=== PATIENT | female | born 1940 | race Caucasian/White ===

== ENCOUNTER 2017-05-02 13:57 | Inpatient (IN) | payer MEDICARE, OTHER ==
[~2017-05-02] VITALS: Ht 170.2 cm; Wt 43.3 kg
[2017-05-02] MEDS ORDERED: MoRPHine SULFATE 4 MG/ML 1 ML CARP\\VIAL IV STA ×3 (14:09→19:59)
[2017-05-02] MEDS ORDERED: ONDANSETRON INJ 2 MG/ML 2 ML VIAL IV STA (14:09)
[2017-05-02] MEDS ORDERED: SODIUM CHLORIDE 0.9% 1000ML 1,000 ML IV STA (14:52)
[2017-05-02 14:59] LABS: BASO % 0.5 %; BASO ABS # 0.05 K/uL (0-0.2); COMPLETE YES; EOS % 0.7 %; HEMATOCRIT 42.8 % (37-47); IG% 0.3 %; LYMPH % 12.4 %; LYMPH ABS # 1.29 K/uL (1.2-3.4); MEAN CELL VOLUME 102.9 fL (80-100); MEAN CORPUSCULAR HEMOGLOBIN 34.6 pg (25-34); MEAN CORPUSCULAR HGB CONC 33.6 g/dl (32-36); MEAN PLATELET VOLUME 11.1 fL (7.4-10.4); MONO % 5.8 %; NEUT % 80.3 %; PLATELET COUNT 215 K/uL (130-400); RED BLOOD COUNT 4.16 M/uL (4.2-5.4); WHITE BLOOD COUNT 10.43 K/uL (4.8-10.8)
[2017-05-02 15:07] LABS: INR 0.9 (0.9-1.1); PARTIAL THROMBOPLASTIN RATIO 0.9
[2017-05-02 15:15] LABS: CREATININE 0.78 mg/dl (0.60-1.20); POTASSIUM 4.5 mmol/L (3.5-5.1)
[2017-05-02] MEDS ORDERED: NASONEX NAE (15:40)
[2017-05-02] MEDS ORDERED: ALLO300T2 PO (15:40)
[2017-05-02] MEDS ORDERED: TIMOLOL OPB (15:40)
[2017-05-02] MEDS ORDERED: TRAM-10 PO (15:40)
[2017-05-02] MEDS ORDERED: LATA0.5S OPB (15:40)
[2017-05-02] MEDS ORDERED: IMD/2 PO (15:40)
[2017-05-02 15:45] VITALS: O2SAT 93; Ht 170.2 cm; Wt 43.3 kg
--- NOTE | 2017-05-02 16:06 | DIAGNOSTIC IMAGING REPORT ---
CHEST 1 VW FRONT-NOT PORTABLE HISTORY: 76 years-old Female RT HIP FX status post right hip fracture COMPARISON: None available TECHNIQUE: AP view of the chest FINDINGS: Patient is slightly rotated to the right. Cardiac silhouette is upper limits of normal. There is tortuosity and atherosclerosis of the thoracic aorta. There is no pneumothorax, overt pulmonary edema or focal airspace consolidation. There is mild pulmonary vascular congestion. Mild blunting of left costophrenic angle is noted suggesting atelectasis or trace effusion. Mild interstitial coarsening is noted bilaterally. Lungs are mildly hyperinflated. Bones are grossly intact. Mild sigmoidal scoliosis of the spine. IMPRESSION: 1. Mild blunting of left costophrenic angle suggests atelectasis/scarring or trace effusion. 2. Interstitial opacities bilaterally suggests chronic changes without lobar airspace consolidation. The above report was generated using voice recognition software. It may contain grammatical, syntax or spelling errors. Electronically signed by: Sonny Sky M.D. 05/02/2017 4:05 PM Dictated Date/Time: 05/02/2017 4:02 PM
--- NOTE | 2017-05-02 16:09 | DIAGNOSTIC IMAGING REPORT ---
R PELVIS/UNILATERAL HIP 2-3VIEWS HISTORY: 76 years-old Female fall acute right hip pain status post fall COMPARISON: None available TECHNIQUE: 4 views of the pelvis and right hip. FINDINGS: Bones are moderately demineralized. 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 Degenerative changes are also seen within the SI joints and bilateral lumbar spine. There is an acute minimally comminuted intertrochanteric fracture of the right femur with apex lateral angulation of approximately 25 degrees. Fracture lines are seen extending inferior to the greater trochanter laterally. No significant displacement or foreshortening identified. Moderate associated soft tissue swelling. IMPRESSION: Acute minimally comminuted intertrochanteric fracture of the right femur with mild apex lateral angle angulation and associated soft tissue swelling. The above report was generated using voice recognition software. It may contain grammatical, syntax or spelling errors. Electronically signed by: Sonny Sky M.D. 05/02/2017 4:07 PM Dictated Date/Time: 05/02/2017 4:05 PM
[2017-05-02 16:12] LABS: URINE APPEARANCE CLOUDY (CLEAR); URINE BILIRUBIN NEG (NEG); URINE COLOR DK YELLOW; URINE EPITHELIAL CELL AUTO >30 /lpf (0-5); URINE NITRITE NEG (NEG); UROBILINOGEN NEG (NEG); ZZURINE CULT IF INDIC CATH NO
--- NOTE | 2017-05-02 16:22 | History and Physical ---
History & Physical Date & Time of Service: May 02, 2017 at 16:19 Chief Complaint: Fall/ Rt Hip Pain Primary Care Physician: No Doctor, Assigned History of Present Illness Source: patient, family Her was taking their dogs out from the trailer as they were here visiting for [employer] football game. One of the dogs ran loose and patient grabbed the leash. Her 96 lb dog got excited and jumped on her while she was standing pushing her backwards on hardwood floor in the trailer on the right side. Past Medical/Surgical History Medical Problems: (1) Shoulder dislocation Status: Chronic Family History No pertinent family history Non-contributory Social History From [place], [place] Goes to [facility] Retired from [employer] 2 packs per day on average since 1959 (114 pack year history) Smoking Status: Current Every Day Smoker Allergies Coded Allergies: No Known Allergies (Unverified , 05/02/17) Home Medications Scheduled Allopurinol (Zyloprim), 300 MG PO DAILY Latanoprost (Xalatan 0.005% Oph Esther), 1 DROPS OPB HS Loperamide Hcl (Imodium), 2 MG PO PRN [Timolol], 1 DROP OPB QAM Scheduled PRN Tramadol (Ultram), 50 MG PO Q4H PRN for Pain [Nasonex], 1 SPRAY WARD DAILY PRN for Nasal Congestion Physical Exam Vital Signs Date Time Temp Pulse Resp B/P (MAP) Pulse Ox O2 Delivery O2 Flow Rate FiO2 05/02/17 15:57 116 14 93 05/02/17 15:45 93 Room Air 05/02/17 15:27 111 18 93 05/02/17 14:28 106 05/02/17 14:27 95 25 96 05/02/17 14:05 154/79 05/02/17 13:57 36.7 84 18 154/79 97 Room Air Diagnostics Laboratory Results Results Past 24 Hours Test 05/02/17 14:30 05/02/17 15:55 Range/Units White Blood Count 10.43 4.8-10.8 K/uL Red Blood Count 4.16 4.2-5.4 M/uL Hemoglobin 14.4 12.0-16.0 g/dL Hematocrit 42.8 37-47 % Mean Corpuscular Volume 102.9 80-100 fL Mean Corpuscular Hemoglobin 34.6 25-34 pg Mean Corpuscular Hemoglobin Concent 33.6 32-36 g/dl Platelet Count 215 130-400 K/uL Mean Platelet Volume 11.1 7.4-10.4 fL Neutrophils (%) (Auto) 80.3 % Lymphocytes (%) (Auto) 12.4 % Monocytes (%) (Auto) 5.8 % Eosinophils (%) (Auto) 0.7 % Basophils (%) (Auto) 0.5 % Neutrophils # (Auto) 8.39 1.4-6.5 K/uL Lymphocytes # (Auto) 1.29 1.2-3.4 K/uL Monocytes # (Auto) 0.60 0.11-0.59 K/uL Eosinophils # (Auto) 0.07 0-0.5 K/uL Basophils # (Auto) 0.05 0-0.2 K/uL RDW Standard Deviation 54.3 36.4-46.3 fL RDW Coefficient of Variation 14.5 11.5-14.5 % Immature Granulocyte % (Auto) 0.3 % Immature Granulocyte # (Auto) 0.03 0.00-0.02 K/uL Prothrombin Time 10.0 9.0-12.0 SECONDS Prothromb Time International Ratio 0.9 0.9-1.1 Activated Partial Thromboplast Time 24.0 21.0-31.0 SECONDS Partial Thromboplastin Ratio 0.9 Sodium Level 140 136-145 mmol/L Potassium Level 4.5 3.5-5.1 mmol/L Chloride Level 102 98-107 mmol/L Carbon Dioxide Level 26 21-32 mmol/L Anion Gap 12.0 3-11 mmol/L Blood Urea Nitrogen 10 7-18 mg/dl Creatinine 0.78 0.60-1.20 mg/dl Est Creatinine Clear Calc Drug Dose 43.3 ml/min Estimated GFR () 86.8 Estimated GFR (Non- 74.9 BUN/Creatinine Ratio 13.0 10-20 Random Glucose 90 70-99 mg/dl Calcium Level 10.0 8.5-10.1 mg/dl Impression Assessment and Plan Right hip fracture in a 76 year old female with h/o emphysema and over 100 pack year of smoking Suprisingly patient has no history of CHF, MS, TIA, stroke, renal failure, diabetes Relative Cardiac Risk Index is 0. Patient is low risk for intermediate risk procedure. consulted ortho ordered pain control informed risk level to patient and she understood. will be NPO after midnight ASA Classification: ASA Class I Level of Care Med/Surg Advanced Directives Existing Living Will: No Existing Power of Candle Making Supervisor: No Resuscitation Status FULL RESUSCITATION VTE Prophylaxis VTE Risk Assessment Done? Y/N: Yes Risk Level: Moderate Given or contraindicated: T.E.D. Stockings, SCD's Social Service Consult Lives in Personal Care
[2017-05-02 16:33] LABS: MANUAL MICROSCOPIC REQUIRED? NO; REVIEW REQ? YES
[2017-05-02] MEDS ORDERED: PNEUMOCOCCAL ADMINISTRATION CHARGE ONE (16:45)
[2017-05-02] MEDS ORDERED: PNEUMOCOCCAL POLYSACCHARIDES 25 MCG/0.5 ML VIAL/SYR IM. ONE (16:45)
[2017-05-02] MEDS ORDERED: INFLUENZA VACCINE HIGH DOSE 65+ 0.5 ML SYR IM. ONE (16:45)
[2017-05-02] MEDS ORDERED: INFLUENZA ADMINISTRATION CHARGE ONE (16:45)
--- NOTE | 2017-05-02 17:24 | EMERGENCY ROOM VISIT NOTE ---
History Report prepared by Sharita: Franky Petty Under the Supervision of: Dr. Roge Marie D.O. First contact with patient: 13:58 Stated Complaint: FALL/ RT HIP PAIN History of Present Illness The patient is a 76 year old female who presents to the Emergency Room via EMS with complaints of a sudden mechanical fall that occurred prior to arrival this morning. She says that her retriever jumped onto her with the dog's paws on her chest, and the patient then proceeded to fall to the ground onto her right side. The patient states that she could not walk afterwards due to persistent right hip pain. She says that she did not hit her head on the fall. She notes that she is not on any blood thinners. The patient adds that she has no fracture history, but has had a dislocated shoulder previously. She says that she is not normally on oxygen. She denies any loss of consciousness, headaches, neck pain, chest pain, shortness of breath, or left lower extremity pain. She has a history of gout and is from the [facility]. Source of History: patient, EMS Onset: Prior to arrival this morning Position: other (global - fall) Quality: other (mechanical - after dog jumped on her) Timing: other (sudden) Associated Symptoms: No LOC, No headache, No neck pain, No chest pain, No SOB Note: Associated symptoms: Denies left lower extremity pain. Review of Systems See HPI for pertinent positives & negatives. A total of 10 systems reviewed and were otherwise negative. Past Medical & Surgical Medical Problems: (1) Shoulder dislocation Family History No pertinent family history Social History Drug Use: none Marital Status: Housing Status: lives with family Current/Historical Medications Scheduled Allopurinol (Zyloprim), 300 MG PO DAILY Latanoprost (Xalatan 0.005% Oph Esther), 1 DROPS OPB HS Loperamide Hcl (Imodium), 2 MG PO PRN [Timolol], 1 DROP OPB QAM Scheduled PRN Tramadol (Ultram), 50 MG PO Q4H PRN for Pain [Nasonex], 1 SPRAY WARD DAILY PRN for Nasal Congestion Allergies Coded Allergies: No Known Allergies (Unverified , 05/02/17) Physical Exam Vital Signs Date Time Temp Pulse Resp B/P (MAP) Pulse Ox O2 Delivery O2 Flow Rate FiO2 05/02/17 16:44 98 Nasal Cannula 2.0 05/02/17 16:43 87 Room Air 05/02/17 16:30 113 12 115/73 98 Nasal Cannula 2.0 05/02/17 15:57 116 14 93 05/02/17 15:45 93 Room Air 05/02/17 15:27 111 18 93 05/02/17 14:28 106 05/02/17 14:27 95 25 96 05/02/17 14:05 154/79 05/02/17 13:57 36.7 84 18 154/79 97 Room Air Physical Exam GENERAL: laying in bed, moderate distress, disheveled, chronically ill-appearing HEAD: normal cephalic, atraumatic EYE EXAM: normal conjunctiva OROPHARYNX: no exudate, no erythema, lips, buccal mucosa, and tongue normal and mucous membranes are moist NOSE: No septal hematoma. NECK: supple, no nuchal rigidity, no adenopathy, non-tender CHEST: stable to compression anteriorly and posteriorly LUNGS: clear to auscultation. Normal chest wall mechanics HEART: no murmurs, S1 normal and S2 normal, there is an audible click ABDOMEN: abdomen soft, non-tender, normo-active bowel sounds, no masses, no rebound or guarding. PELVIS: stable to compression anteriorly and posteriorly BACK: Back is symmetrical on inspection and there is no deformity, no midline tenderness, no CVA tenderness. UPPER EXTREMITIES: full active and passive range of motion of all joints without tenderness to palpation LOWER EXTREMITIES: Full active and passive range of motion of all joints without tenderness to palpation in the left lower extremity. In the right lower extremity, there is significant pain on palpation to the proximal hip, no pain in the distal femur, knee, or ankle. DP 2/4 on right NEURO EXAM: Normal sensorium, cranial nerves II-XII grossly intact, normal speech, no gross weakness of arms. GCS: 15. Medical Decision & Procedures ER Provider Diagnostic Interpretation: X-ray results as stated below per my review and the radiologist's interpretation : R PELVIS/UNILATERAL HIP 2-3VIEWS HISTORY: 76 years-old Female fall acute right hip pain status post fall COMPARISON: None available TECHNIQUE: 4 views of the pelvis and right hip. FINDINGS: Bones are moderately demineralized. 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 Degenerative changes are also seen within the SI joints and bilateral lumbar spine. There is an acute minimally comminuted intertrochanteric fracture of the right femur with apex lateral angulation of approximately 25 degrees. Fracture lines are seen extending inferior to the greater trochanter laterally. No significant displacement or foreshortening identified. Moderate associated soft tissue swelling. IMPRESSION: Acute minimally comminuted intertrochanteric fracture of the right femur with mild apex lateral angle angulation and associated soft tissue swelling. The above report was generated using voice recognition software. It may contain grammatical, syntax or spelling errors. Electronically signed by: Sonny Sky M.D. 05/02/2017 4:07 PM Dictated Date/Time: 05/02/2017 4:05 PM CHEST 1 VW FRONT-NOT PORTABLE HISTORY: 76 years-old Female RT HIP FX status post right hip fracture COMPARISON: None available TECHNIQUE: AP view of the chest FINDINGS: Patient is slightly rotated to the right. Cardiac silhouette is upper limits of normal. There is tortuosity and atherosclerosis of the thoracic aorta. There is no pneumothorax, overt pulmonary edema or focal airspace consolidation. There is mild pulmonary vascular congestion. Mild blunting of left costophrenic angle is noted suggesting atelectasis or trace effusion. Mild interstitial coarsening is noted bilaterally. Lungs are mildly hyperinflated. Bones are grossly intact. Mild sigmoidal scoliosis of the spine. IMPRESSION: 1. Mild blunting of left costophrenic angle suggests atelectasis/scarring or trace effusion. 2. Interstitial opacities bilaterally suggests chronic changes without lobar airspace consolidation. The above report was generated using voice recognition software. It may contain grammatical, syntax or spelling errors. Electronically signed by: Sonny Sky M.D. 05/02/2017 4:05 PM Dictated Date/Time: 05/02/2017 4:02 PM Laboratory Results 05/02/17 14:30 Red Blood Count 4.16, Mean Corpuscular Volume 102.9, Mean Corpuscular Hemoglobin 34.6, Mean Corpuscular Hemoglobin Concent 33.6, Mean Platelet Volume 11.1, Neutrophils (%) (Auto) 80.3, Lymphocytes (%) (Auto) 12.4, Monocytes (%) ( Auto) 5.8, Eosinophils (%) (Auto) 0.7, Basophils (%) (Auto) 0.5, Neutrophils # ( Auto) 8.39, Lymphocytes # (Auto) 1.29, Monocytes # (Auto) 0.60, Eosinophils # ( Auto) 0.07, Basophils # (Auto) 0.05 05/02/17 14:30 Test 05/02/17 14:30 05/02/17 15:55 White Blood Count 10.43 K/uL (4.8-10.8) Red Blood Count 4.16 M/uL (4.2-5.4) Hemoglobin 14.4 g/dL (12.0-16.0) Hematocrit 42.8 % (37-47) Mean Corpuscular Volume 102.9 fL (80-100) Mean Corpuscular Hemoglobin 34.6 pg (25-34) Mean Corpuscular Hemoglobin Concent 33.6 g/dl (32-36) Platelet Count 215 K/uL (130-400) Mean Platelet Volume 11.1 fL (7.4-10.4) Neutrophils (%) (Auto) 80.3 % Lymphocytes (%) (Auto) 12.4 % Monocytes (%) (Auto) 5.8 % Eosinophils (%) (Auto) 0.7 % Basophils (%) (Auto) 0.5 % Neutrophils # (Auto) 8.39 K/uL (1.4-6.5) Lymphocytes # (Auto) 1.29 K/uL (1.2-3.4) Monocytes # (Auto) 0.60 K/uL (0.11-0.59) Eosinophils # (Auto) 0.07 K/uL (0-0.5) Basophils # (Auto) 0.05 K/uL (0-0.2) RDW Standard Deviation 54.3 fL (36.4-46.3) RDW Coefficient of Variation 14.5 % (11.5-14.5) Immature Granulocyte % (Auto) 0.3 % Immature Granulocyte # (Auto) 0.03 K/uL (0.00-0.02) Prothrombin Time 10.0 SECONDS (9.0-12.0) Prothromb Time International Ratio 0.9 (0.9-1.1) Activated Partial Thromboplast Time 24.0 SECONDS (21.0-31.0) Partial Thromboplastin Ratio 0.9 Anion Gap 12.0 mmol/L (3-11) Est Creatinine Clear Calc Drug Dose 43.3 ml/min Estimated GFR () 86.8 Estimated GFR (Non- 74.9 BUN/Creatinine Ratio 13.0 (10-20) Calcium Level 10.0 mg/dl (8.5-10.1) Urine Color DK YELLOW Urine Appearance CLOUDY (CLEAR) Urine pH 5.0 (4.5-7.5) Urine Specific [place] 1.020 (1.000-1.030) Urine Protein NEG (NEG) Urine Glucose (UA) NEG (NEG) Urine Ketones 1+ (NEG) Urine Occult Blood NEG (NEG) Urine Nitrite NEG (NEG) Urine Bilirubin NEG (NEG) Urine Urobilinogen NEG (NEG) Urine Leukocyte Esterase SMALL (NEG) Urine WBC (Auto) 5-10 /hpf (0-5) Urine RBC (Auto) 0-4 /hpf (0-4) Urine Hyaline Casts (Auto) 10-30 /lpf (0-5) Urine Epithelial Cells (Auto) >30 /lpf (0-5) Urine Bacteria (Auto) NEG (NEG) Urine Renal Epithelial Cells /lpf (0-5) Laboratory results per my review. Medications Administered Medications (Trade) Dose Ordered Sig/Miah Route Start Time Stop Time Status Last Admin Dose Admin Morphine Sulfate (MoRPHine SULFATE INJ) 4 mg NOW STAT IV 05/02/17 14:09 05/02/17 14:10 DC 05/02/17 14:48 4 MG Ondansetron HCl (Zofran Inj) 4 mg NOW STAT IV 05/02/17 14:09 05/02/17 14:10 DC 05/02/17 14:48 4 MG Sodium Chloride 1,000 ml @ 999 mls/hr Q1H1M STAT IV 05/02/17 14:52 05/02/17 15:52 DC 05/02/17 14:58 999 MLS/HR Morphine Sulfate (MoRPHine SULFATE INJ) 4 mg NOW STAT IV 05/02/17 15:35 05/02/17 15:36 DC 05/02/17 15:54 4 MG ECG Indication: other (trauma) Rate (beats per minute): 104 Rhythm: sinus tachycardia Findings: Q waves (Septal), left axis deviation, other (T-wave flattening in inferior) ED Course ED COURSE: Vital signs were reviewed and showed tachycardic vitals. The patients medical record was reviewed The above diagnostic studies were performed and reviewed. ED treatments and interventions as stated above. 1358: The patient was evaluated in room C4. A complete history and physical examination was performed. 1409: Ordered Zofran Inj 4 mg IV, Morphine Sulfate Inj 4 mg IV. 1452: Ordered NSS 1000 ml @ 999 mls/hr IV. 1525: Upon reevaluation, the patient still has a bit of pain. I discussed my findings with the patient and she understands and agrees with the treatment plan. Based on the patients age, coexisting illnesses, exam and lab findings the decision to treat as an inpatient was made. The patient remained stable while under my care. The patient will be evaluated for further management. 1536: I reviewed the patient's case with Dr. Millicent PETTIT service parts driver. He will evaluate the patient for further management. 1600: I reevaluated the patient and she is agreeable with staying here. 1614: I discussed the patient with Dr. Heath PAK. Medical Decision Differential diagnoses include major intracranial, cervical, spinal, thoracic, abdominal, pelvic and neurologic injury. Fracture, contusion, sprain, strain, laceration, abrasions included as well. Patient is a 76-year-old female who presents to ER following a mechanical fall. She is complaining of right hip pain. She is from [facility]. No other complaints. Did not hit her head. No blood thinners. X-rays show a right inotrope fracture. Discussed with orthopedics. Admitted patient to internal medicine. CBC all BMP was unremarkable. UA was contaminated with multiple epithelial cells. Chest x-ray shows no acute pathology. Patient was updated bedside. She is given 2 doses of IV morphine. She was resting comfortably and admitted to internal medicine for her right hip fracture. Medication Reconcilliation Current Medication List: was personally reviewed by me Blood Pressure Screening Patient's blood pressure: Normal blood pressure Consults Time Called: 1530 Consulting Physician: Dr. Millicent PETTIT service parts driver Returned Call: 1536 I reviewed the patient's case with Dr. Millicent PETTIT service parts driver. He will evaluate the patient for further management. Additional Consults: Time Called: 1600 Consulted Physician: Dr. Heath PAK Returned Call: 1614 Additional Comments: I discussed the patient with Dr. Heath PAK. Impression Primary Impression: Fracture of right hip Scribe Attestation The scribe's documentation has been prepared under my direction and personally reviewed by me in its entirety. I confirm that the note above accurately reflects all work, treatment, procedures, and medical decision making performed by me. Departure Information Dispostion Being Evaluated By Hospitalist Problem Qualifiers Primary Impression: Fracture of right hip Encounter type: initial encounter Fracture type: closed Qualified Codes: S72.001A - Fracture of unspecified part of neck of right femur, initial encounter for closed fracture
[2017-05-02 18:40] VITALS: BP 165/81; PULSE 71; TEMP 36.7; O2SAT 99
[2017-05-02] MEDS ORDERED: HydrALAZINE HCL 20 MG/ML VIAL IV. PRN (20:00)
[2017-05-02] MEDS ORDERED: HYDROmorphone INJ 1 MG/ML SYR IV PRN (20:00)
[2017-05-02 23:10] VITALS: BP 132/77; PULSE 90; TEMP 36.7; O2SAT 97
[2017-05-02] MEDS ORDERED: LATANOPROST 0.005% OP SOLN 2.5 ML BTL OPB ONE (23:24)
[2017-05-02 23:40] VITALS: O2SAT 97
[2017-05-03] VITALS (8 sets, daily range): BP systolic 124–171; BP diastolic 69–94; PULSE 68–117; TEMP 36.3–36.9; O2SAT 96–99
[2017-05-03] MEDS: MoRPHine SULFATE 4 MG/ML 1 ML CARP\\VIAL IV PRN ×2 (00:49→07:52)
[2017-05-03] MEDS: LACTATED RINGER'S 1000ML 1,000 ML IV SCH ×3 (02:24→23:26)
[2017-05-03] MEDS: ALLOPURINOL 300 MG TAB PO SCH (09:00)
[2017-05-03] MEDS: NICOTINE 21 MG/24 HR TDSY TD SCH (09:32)
[2017-05-03] MEDS ORDERED: BUPIVACAINE 0.5 % 5 MG/1 ML PF 10ML VIAL ONE (10:09)
--- NOTE | 2017-05-03 10:38 | CONSULTATION REPORT ---
DATE OF CONSULTATION: 05/03/2017 REASON FOR CONSULT: Right hip fracture. HISTORY OF PRESENT ILLNESS: The patient is a 76-year-old white female who is accompanied by her . The patient and her state that they were staying at a campground nearby [place]. The was letting the dogs out of the camper, taking one of dogs for a walk and bring him back. This dog went into the camper and then as they were trying to get one of the other dogs out of the camper, this dog ended up pulling on the leash that the patient was holding on causing her to lose her balance and fall. She had immediate pain in the right hip and groin and was unable to walk. She was brought to [facility] where she was seen by the staff. X-rays were taken and it was found that she had an intertrochanteric fracture of the right hip. She was admitted under medicine service and we have been asked to take care of her for her hip fracture. PAST MEDICAL HISTORY: Essentially benign. No history of hypertension, diabetes mellitus, tuberculosis, hepatitis, COPD. She does have a history of glaucoma and gout. PAST SURGICAL HISTORY: She had a reduction of the shoulder dislocation in the past. FAMILY HISTORY: Noncontributory. SOCIAL HISTORY: The patient is from the [facility] [place]. She is a smoker and smokes 2 packs per day. MEDICATIONS: Allopurinol 300 mg p.o. daily, Xalatan 0.005% ophthalmic solution 1 drop OPB at bedtime, timolol drops 1 drop OPB q.a.m., Imodium 2 mg p.o. p.r.n., tramadol 50 mg p.o. q. 4 hours p.r.n. pain, Nasonex spray 1 spray daily p.r.n. for congestion. ALLERGIES: NKDA. REVIEW OF SYSTEMS: As per admitting history and physical. PHYSICAL EXAMINATION: GENERAL: The patient is a 76-year-old old white female who appears her stated age. She is thin currently and having some mild to moderate pain in her right hip and groin due to her fracture. EXTREMITIES: Examination of the right lower extremity, it is shortened and externally rotated compared to the left. No attempts were made to move the right hip due to fracture and range of motion of her knee at this time is limited due to causing her right hip discomfort. She is nontender on palpation of the knee and is able to flex it mildly and extend at this time but causing her some discomfort in the hip as noted above. Right ankle and toes moved quite well and are nontender. Left lower extremity essentially within normal limits and has good range of motion at the hip, knee and ankle. Upper extremities are benign and have good range of motion at the elbows, shoulders and wrists. She is nontender throughout exam except up at the right lateral aspect of the hip which she has noted swelling from fracture. She denies neck pain on palpation and has good range of motion of her neck at this time and denies thoracic or low back pain. Other than being immobile from her right hip fractures, there is no gross motor or sensory losses at this time. ASSESSMENT: Right intertrochanteric hip fracture. PLAN: The patient will be required a trochanteric femoral nailing. This was previously discussed with the patient and her . Dr. Baez will see the patient later today and discussed risks, benefits and get consent for surgery.
--- NOTE | 2017-05-03 11:56 | History & Physical Bridge Note ---
H&P Re-Evaluation Bridge Note: I have examined the patient, reviewed the History & Physical and in the interval since the performance of the History & Physical I have noted the following changes of clinical significance: No changes noted
[2017-05-03] MEDS ORDERED: NURSING VERBAL MED ORDER STA (12:10)
[2017-05-03] MEDS ORDERED: CEFAZOLIN IV 1,000 MG in SYRINGE 0 ML IV STA (12:15)
[2017-05-03] MEDS ORDERED: CEFAZOLIN SOD 1000MG/5 ML IV PUSH IV ONE (12:16)
[2017-05-03] MEDS ORDERED: PROPOFOL IV EMULSION 10 MG/ML 20 ML VIAL IV ONE (12:59)
[2017-05-03] MEDS ORDERED: LIDOCAINE HCL 2% 2 ML VIAL (20MG/ML) ONE (12:59)
[2017-05-03] MEDS ORDERED: MIDAZOLAM HCL 1 MG/ML 2ML VIAL ONE (13:00)
[2017-05-03] MEDS ORDERED: FENTANYL CITRATE INJ 50 MCG/1 ML 2 ML VIAL ONE (13:48)
[2017-05-03] MEDS ORDERED: ONDANSETRON INJ 2 MG/ML 2 ML VIAL IV PRN ×2 (14:00→15:15)
[2017-05-03] MEDS ORDERED: PROMETHAZINE HCL INJ 6.25 MG in SODIUM CHLORIDE 0.9% 50ML 50 ML IV PRN (14:00)
[2017-05-03] MEDS ORDERED: EpHEDrine SULFATE INJ 50 MG/ML AMP IV PRN (14:00)
[2017-05-03] MEDS ORDERED: FENTANYL CITRATE INJ 50 MCG/1 ML 2 ML VIAL IV PRN (14:00)
[2017-05-03] MEDS ORDERED: ATROPINE SULFATE 0.1 MG/ML 5ML SYR IV PRN (14:00)
[2017-05-03] MEDS ORDERED: SODIUM CHLORIDE 0.9% INJ 10 ML VIAL ONE (14:32)
[2017-05-03] MEDS ORDERED: KETAMINE HCL INJ 50 MG/ML 10 ML VIAL ONE (14:33)
[2017-05-03] MEDS ORDERED: NALOXONE HCL 0.4 MG/1 ML VIAL/CARP IV PRN (15:15)
[2017-05-03] MEDS ORDERED: MAGNESIUM HYDROXIDE SUSP 30 ML UDC PO PRN (15:15)
[2017-05-03] MEDS ORDERED: BISACODYL 10 MG SUPP PR PRN (15:15)
[2017-05-03] MEDS ORDERED: PHENYLEPHRINE 100MCG/ML 5ML SYR ONE (15:17)
--- NOTE | 2017-05-03 15:42 | Hospitalist Progress Note ---
Hospitalist Progress Note Date of Service May 03, 2017. (Kathleen Garcia PA-C) Subjective Pt evaluation today including: conversation w/ patient, conversation w/ family , physical exam, chart review, lab review, review of studies, review of inpatient medication list Patient seen and evaluated. No acute events overnight. Reporting pain in the R hip that is controlled with IV medications but not sustaining. Patient is due for OR today for repair. Reporting her dentist mentioned poor mineralization as she has been consistently losing teeth. Constitutional: No fever, No chills Respiratory: No cough, No shortness of breath Cardiovascular: No chest pain, No palpitations Abdomen: No pain, No nausea, No vomiting, No diarrhea, No constipation Musculoskeletal: + joint pain (R Hip), No calf pain Female : No dysuria Neurologic: No numbness/tingling Heme: No abnormal bleeding/bruising Skin: No rash (Kathleen Garcia PA-C) Medications Current Inpatient Medications Medications (Trade) Dose Ordered Sig/Miah Route Start Time Stop Time Status Last Admin Dose Admin Morphine Sulfate (MoRPHine SULFATE INJ) 4 mg Q4H PRN IV 05/02/17 20:00 05/16/17 19:59 05/03/17 07:52 4 MG Hydromorphone HCl (Dilaudid Inj) 1 mg Q4H PRN IV 05/02/17 20:00 05/16/17 19:59 05/02/17 22:50 1 MG Hydralazine HCl (HydrALAZINE INJ) 10 mg Q4H PRN IV. 05/02/17 20:00 06/01/17 19:59 Allopurinol (Zyloprim Tab) 300 mg DAILY PO 05/03/17 09:00 06/02/17 08:59 Latanoprost (Xalatan Oph Soln) 1 drops HS OPB 05/03/17 21:00 06/02/17 20:59 Lactated Ringer's 1,000 ml @ 80 mls/hr [id number] IV 05/03/17 01:45 06/02/17 01:44 05/03/17 02:24 80 MLS/HR Nicotine (Nicoderm Cq 21MG Patch) 1 patch QAM TD 05/03/17 09:00 06/02/17 08:59 05/03/17 09:32 1 PATCH Miscellaneous (Remove Nicoderm Patch) 1 ea HS N/A 05/03/17 21:00 06/02/17 20:59 Fentanyl Citrate (Fentanyl Inj) 50 mcg Q5M PRN IV 05/03/17 14:00 05/03/17 19:00 Ondansetron HCl (Zofran Inj) 4 mg ONE PRN IV 05/03/17 14:00 05/03/17 19:00 Promethazine HCl 6.25 mg/Sodium Chloride 50.25 ml @ 202 mls/hr ONE PRN IV 05/03/17 14:00 05/03/17 19:00 Ephedrine Sulfate (EpHEDrine SULFATE INJ) 5 mg Q5M PRN IV 05/03/17 14:00 05/03/17 19:00 Atropine Sulfate (Atropine Sulfate 0.1MG/Ml Inj) 0.5 mg Q1M PRN IV 05/03/17 14:00 05/03/17 19:00 Cefazolin Sodium 1000 mg/Dextrose 55 ml @ 100 mls/hr Q8H IV 05/03/17 15:15 05/03/17 23:47 UNV Ondansetron HCl (Zofran Inj) 4 mg Q6H PRN IV 05/03/17 15:15 06/02/17 15:14 UNV Oxycodone HCl (Roxicodone Immediate Rel Tab) 5 mg Q4H PRN PO 05/03/17 15:15 05/17/17 15:14 UNV Oxycodone HCl (Roxicodone Immediate Rel Tab) 10 mg Q4H PRN PO 05/03/17 15:15 05/17/17 15:14 UNV Aspirin/Aluminum/ Magnesium/Ca Carb (Ascriptin Tab) 325 mg BID PO 05/03/17 21:00 06/02/17 20:59 UNV Naloxone HCl (Narcan Inj) 0.4 mg Q1M PRN IV 05/03/17 15:15 06/02/17 15:14 UNV Senna/Docusate Sodium (Senokot S Tab) 2 tab HS PO 05/03/17 21:00 06/02/17 20:59 UNV Magnesium Hydroxide (Milk Of Magnesia Susp) 30 ml DAILY PRN PO 05/03/17 15:15 06/02/17 15:14 UNV Bisacodyl (Dulcolax Supp) 10 mg DAILY PRN [place] 05/03/17 15:15 06/02/17 15:14 UNV (Kathleen Garcia PA-C) Objective Vital Signs Date Time Temp Pulse Resp B/P (MAP) Pulse Ox O2 Delivery O2 Flow Rate FiO2 05/03/17 08:16 Nasal Cannula 1.5 05/03/17 08:11 36.7 68 16 124/78 (93) 98 Nasal Cannula 1.5 05/03/17 07:40 97 Nasal Cannula 2.0 05/02/17 23:40 97 Nasal Cannula 2.0 05/02/17 23:10 36.7 90 17 132/77 (95) 97 Room Air 05/02/17 18:40 99 Nasal Cannula 2.0 05/02/17 18:40 36.7 71 18 165/81 (109) 99 Nasal Cannula 2.0 05/02/17 18:26 116 12 131/76 96 05/02/17 18:25 116 131/76 96 Room Air 05/02/17 16:44 98 Nasal Cannula 2.0 05/02/17 16:43 87 Room Air 05/02/17 16:30 113 12 115/73 98 Nasal Cannula 2.0 05/02/17 15:57 116 14 93 05/02/17 15:45 93 Room Air (Kathleen Garcia PA-C) Physical Exam General Appearance: no apparent distress, + thin Neck: supple, no JVD, trachea midline Respiratory/Chest: lungs clear, normal breath sounds, no respiratory distress, no accessory muscle use Cardiovascular: regular rate, rhythm, no gallop, no murmur Abdomen: normal bowel sounds, non tender, soft Extremities: + pertinent finding (RLE externally rotated and slightly shortened ; good perfusion and temperature equal in legs b/l) Neurologic/Psychiatric: alert Skin: normal color, warm/dry (Kathleen Garcia PA-C) Laboratory Results Last 24 Hours Test 05/02/17 15:55 05/03/17 09:20 Urine Color DK YELLOW Urine Appearance CLOUDY Urine pH 5.0 Urine Specific [place] 1.020 Urine Protein NEG Urine Glucose (UA) NEG Urine Ketones 1+ Urine Occult Blood NEG Urine Nitrite NEG Urine Bilirubin NEG Urine Urobilinogen NEG Urine Leukocyte Esterase SMALL Urine WBC (Auto) 5-10 /hpf Urine RBC (Auto) 0-4 /hpf Urine Hyaline Casts (Auto) 10-30 /lpf Urine Epithelial Cells (Auto) >30 /lpf Urine Bacteria (Auto) NEG Urine Renal Epithelial Cells /lpf 25-Hydroxy Vitamin D Total 4.6 ng/ml (Kathleen Garcia, PA-C) Assessment and Plan Right hip fracture in a 76 year old female with h/o emphysema and over 100 pack year of smoking R Hip Fracture: - Patient sustained a fall from a 90+ dog jumped up on her and fell backwards - Pain medication PRN - PT/OT services - Orthopedics following - scheduled for OR today Suspect Osteopenia/Osteoporosis: - Obtain Vit D level and recommend outpatient DEXA scan Tobacco Use: - Discussed with patient and about emphysema and need to stop smoking - 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 DVT Prophylaxis: SCDs Code Status: FULL RESUSCITATION Disposition: - [place] and recommending services near home - Recommending to follow with orthopedic back home if possible Continued [facility] stay due to: ambulation difficulties Discharge planning: uncertain (PT services vs SNF/Rehab back home) (Kathleen Garcia, PA-C) i personally examined pt and verified all arizmendi points w Dayanara Garcia PAC uncomfortable but pain meds help never had DEXA smokes heavily vitals noted nad thin and frail breathing unlabored hip fx - medically acceptable for OR, benefits far outweigh operative risks presumed osteoporosis - check D level, outpt start bisphosphonate ~1 month from now, DEXA as outpt as well underweight, smoking - contribute to osteoporosis risks macrocytosis - as a late addition after seeing D level so profoundly low - will check B12, folic acid DVT proph - SCD, start pharmacologic once OK w ortho (Roge Roche, D.O.)
--- NOTE | 2017-05-03 15:46 | OPERATIVE REPORT ---
DATE OF OPERATION: 05/03/2017 POSTOPERATIVE DIAGNOSIS: Intertrochanteric hip fracture, right. PROCEDURE: Closed locked trochanteric nailing, right hip. SURGEON: Dr. Baez. ANESTHESIA: Spinal. COMPLICATIONS: None. DESCRIPTION OF PROCEDURE: Following induction of adequate anesthesia, the patient's right leg was placed on the fracture table and closed reduction was carried out using a longitudinal traction. Nearly, anatomic reduction was obtained. The right hip was prepped and draped in usual sterile manner. Fluoroscopic guidance was used to locate the proximal incision which was made at the tip of the greater trochanter. Sharp dissection was taken down to fascia and digital palpation felt the tip of the greater trochanter. A drill tipped guidewire was placed in the center portion of the tip of the greater trochanter and this was drilled and the canal was entered. With no power, the drill tipped wire was guided down the canal of the femur, ensuring adequate placement in AP and lateral planes. The femoral canal was opened using the trochanteric drill and a beaded tipped guidewire was placed intramedullary. The intermediate 11 mm trochanteric nail was passed and held at the appropriate level and the 90 mm helical blade was utilized to fix the fracture proximally. The locking screw was driven home and the guidewire was removed. Following this, the distal interlocking was carried out using the appropriate guide and drill and a single 36 mm screw was used to fix the fracture distally. This produced an anatomic and stable fixation construct. The insertion tool was removed. The wounds were thoroughly irrigated. Fascia was closed proximally using #1 Vicryl, subcutaneous tissue was closed using 2-0 Dexon, and skin was closed with rain. Sterile dressing of Adaptic, 4 x 4s, ABDs and foam tape was applied. The patient tolerated the procedure well. I attest to the content of the Intraoperative Record and any orders documented therein. Any exception s are noted below.
--- NOTE | 2017-05-03 15:49 | DIAGNOSTIC IMAGING REPORT ---
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 Intratrochanteric fracture of the right femur COMPARISON: Pelvis and right hip radiographs 05/02/2017 TECHNIQUE: 3 spot fluoroscopic images of the right hip were obtained utilizing 41.9 seconds fluoroscopy time FINDINGS: Images demonstrate placement of an intramedullary horacio with intertrochanteric nail. Single fixation screw is noted within the proximal femoral shaft. There is fixation with near-anatomic alignment of the previously described acute intertrochanteric fracture. Moderate degenerative changes of the right femoral acetabular joint. IMPRESSION: Status post placement of an intramedullary horacio with intertrochanteric nail demonstrating satisfactory alignment. The above report was generated using voice recognition software. It may contain grammatical, syntax or spelling errors. Electronically signed by: Sonny Sky M.D. 05/03/2017 3:47 PM Dictated Date/Time: 05/03/2017 3:46 PM
--- NOTE | 2017-05-03 16:09 | Anesthesiology Progress Note ---
Anesthesia Post Op Note Date & Time May 03, 2017 at 16:09 Vital Signs Pain Intensity: 0 Vital Signs Past 12 Hours Date Time Temp Pulse Resp B/P (MAP) Pulse Ox O2 Delivery O2 Flow Rate FiO2 05/03/17 16:00 92 15 117/65 100 Nasal Cannula 2 05/03/17 15:50 86 18 114/63 100 Nasal Cannula 2 05/03/17 15:41 36.5 100 18 113/69 100 Nasal Cannula 2 05/03/17 08:16 Nasal Cannula 1.5 05/03/17 08:11 36.7 68 16 124/78 (93) 98 Nasal Cannula 1.5 05/03/17 07:40 97 Nasal Cannula 2.0 Notes Mental Status: alert / awake / arousable, participated in evaluation Pt Amnestic to Procedure: Yes Nausea / Vomiting: adequately controlled Pain: adequately controlled Airway Patency, RR, SpO2: stable & adequate BP & HR: stable & adequate Hydration State: stable & adequate Neuraxial Anesthesia: was administered, sensory block is resolving Anesthetic Complications: no major complications apparent
[2017-05-03] MEDS ORDERED: ERGOCALCIFEROL 50,000 INTER.UNIT CAP PO ONE (18:00)
[2017-05-03] MEDS: OXYCODONE HCL IR 5 MG TAB (IMMEDIATE RELEASE) PO PRN (19:15)
[2017-05-03] MEDS: CEFAZOLIN IV 1,000 MG in SYRINGE 0 ML IV SCH (20:06)
[2017-05-03] MEDS: ASPIRIN/ALUM/MAGNES/CAL CARB 325 MG TAB PO SCH (20:57)
[2017-05-03] MEDS: DOCUSATE SODIUM/SENNA 50/8.6MG TAB PO SCH (20:58)
[2017-05-03] MEDS: LATANOPROST 0.005% OP SOLN 2.5 ML BTL OPB SCH (20:59)
[2017-05-04] VITALS (7 sets, daily range): BP systolic 115–136; BP diastolic 71–83; PULSE 91–115; TEMP 36.7–37.9; O2SAT 91–99
[2017-05-04] MEDS: CEFAZOLIN IV 1,000 MG in SYRINGE 0 ML IV SCH (03:35)
[2017-05-04] MEDS: OXYCODONE HCL IR 5 MG TAB (IMMEDIATE RELEASE) PO PRN ×2 (03:40→10:50)
[2017-05-04 05:54] LABS: HEMATOCRIT 31.2 % (37-47); MEAN CELL VOLUME 103.3 fL (80-100); MEAN CORPUSCULAR HEMOGLOBIN 33.8 pg (25-34); MEAN CORPUSCULAR HGB CONC 32.7 g/dl (32-36); MEAN PLATELET VOLUME 10.3 fL (7.4-10.4); PLATELET COUNT 130 K/uL (130-400); RED BLOOD COUNT 3.02 M/uL (4.2-5.4); WHITE BLOOD COUNT 6.85 K/uL (4.8-10.8)
[2017-05-04 06:35] LABS: BUN/CREATININE RATIO 7.1 (10-20); CALCIUM 8.8 mg/dl (8.5-10.1); CREATININE 0.54 mg/dl (0.60-1.20); POTASSIUM 3.7 mmol/L (3.5-5.1)
[2017-05-04] MEDS: ASPIRIN/ALUM/MAGNES/CAL CARB 325 MG TAB PO SCH ×2 (07:54→22:23)
[2017-05-04] MEDS: NICOTINE 21 MG/24 HR TDSY TD SCH (07:54)
[2017-05-04] MEDS: ALLOPURINOL 300 MG TAB PO SCH (07:54)
--- NOTE | 2017-05-04 08:08 | Anesthesiology Progress Note ---
Anesthesia Post Op Note Date & Time May 04, 2017 at 08:08 Vital Signs Pain Intensity: 8.0 Vital Signs Past 12 Hours Date Time Temp Pulse Resp B/P (MAP) Pulse Ox O2 Delivery O2 Flow Rate FiO2 05/04/17 07:57 37.0 113 18 131/80 (97) 91 Nasal Cannula 2.0 05/04/17 03:35 36.7 91 16 136/76 (96) 99 Nasal Cannula 1.0 05/03/17 23:45 Nasal Cannula 05/03/17 23:03 36.9 101 17 139/69 (92) 98 Nasal Cannula 1.0 05/03/17 20:15 36.8 117 16 145/69 (94) 96 Nasal Cannula 2.0 Notes Mental Status: alert / awake / arousable, participated in evaluation Pt Amnestic to Procedure: Yes Nausea / Vomiting: adequately controlled Pain: adequately controlled Airway Patency, RR, SpO2: stable & adequate BP & HR: stable & adequate Hydration State: stable & adequate Neuraxial Anesthesia: sensory block resolved Anesthetic Complications: no major complications apparent
[2017-05-04] MEDS ORDERED: ERGOCALCIFEROL 50,000 INTER.UNIT CAP PO SCH (09:00)
[2017-05-04] MEDS: CHOLECALCIFEROL 1000 INTER.UNIT TAB PO SCH (09:11)
--- NOTE | 2017-05-04 09:21 | Orthopedic Progress Note ---
Orthopedic Progress Note Date of Service May 04, 2017. Subjective Post OP Day: 1 Reports: feeling well, Denies: chest pain, SOB, nausea / vomiting, light headedness, calf pain Additional Notes: Some pain off and on this AM but tolerating well. Feeling better than she was yesterday. Eating breakfast currently. present and discussing possible dc plans. Objective calves soft nontender, N/V intact, dressing C/D/I, A&O x3, toes mobile Date Time Temp Pulse Resp B/P (MAP) Pulse Ox O2 Delivery O2 Flow Rate FiO2 05/04/17 09:02 Nasal Cannula 2.0 94 05/04/17 07:57 37.0 113 18 131/80 (97) 91 Nasal Cannula 2.0 05/04/17 03:35 36.7 91 16 136/76 (96) 99 Nasal Cannula 1.0 05/03/17 23:45 Nasal Cannula 05/03/17 23:03 36.9 101 17 139/69 (92) 98 Nasal Cannula 1.0 05/03/17 20:15 36.8 117 16 145/69 (94) 96 Nasal Cannula 2.0 05/03/17 18:30 36.5 108 16 160/80 (106) 99 Nasal Cannula 2.0 05/03/17 17:32 36.5 98 18 171/94 (119) 99 Nasal Cannula 2.0 05/03/17 17:00 36.6 99 16 129/73 (91) 99 Nasal Cannula 2.0 05/03/17 16:30 Nasal Cannula 2.0 05/03/17 16:30 36.3 101 16 134/78 (96) 99 Nasal Cannula 2.0 05/03/17 16:30 Nasal Cannula 2.0 05/03/17 16:15 82 14 114/70 100 Nasal Cannula 2 05/03/17 16:10 37.1 83 10 113/72 100 Nasal Cannula 2 05/03/17 16:00 92 15 117/65 100 Nasal Cannula 2 05/03/17 15:50 86 18 114/63 100 Nasal Cannula 2 05/03/17 15:41 36.5 100 18 113/69 100 Nasal Cannula 2 Laboratory Results 24 Hours: Test 05/04/17 05:39 Hematocrit 31.2 % Hemoglobin 10.2 g/dL Assessment & Plan Assessment: POD 1 s/p Right TFN Plan: PT/OT - TTWB Trying to decide between need for Rehab vs home. Will need to she how she does in PT Inhouse Planning Pain Management: Morphine, Oxy IR DVT Prophylaxis: TEDs, SCDs, ASA Discharge Planning Discharge Planning: uncertain
--- NOTE | 2017-05-04 12:24 | Clinical Documentation Query ---
CLINICAL DOCUMENTATION QUERY A 76 year old female who presents to the Emergency Room via EMS with complaints of a sudden mechanical fall from a standing position. In your clinical opinion is this patient being managed for: ( ) Osteoporotic right hip fracture in the setting of osteoporosis/osteopenia requiring partial hip replacement ( x ) Not Agree --- osteoporotic hip fracture but was intertrochanteric nailing not partial replacement ( ) Other explanation of clinical findings (Please Explain) ( ) Unable to determine (Please Define) ( ) Need to Discuss The medical record reflects the following clinical findings, treatment, and risk factors. Clinical Indicators: Hip fracture from a standing position Treatment: Partial hip replacement Risk Factors: Age, osteoporosis, smoker, BMI 15 Please clarify and document your clinical opinion in the progress notes and discharge summary. Terms such as "probable", "suspected", "likely", "questionable", "possible", or "still to be ruled out" are acceptable. IF IN AGREEMENT, YOU MUST DOCUMENT ABOVE DIAGNOSTIC STATEMENT IN DAILY PROGRESS NOTES AND DISCHARGE SUMMARY. This document is not part of the patient's record. Thank You, Sofi Kim RN [phone]
[2017-05-04] MEDS: LACTATED RINGER'S 1000ML 1,000 ML IV SCH (15:15)
--- NOTE | 2017-05-04 17:21 | Hospitalist Progress Note ---
Hospitalist Progress Note Date of Service May 04, 2017. (Kathleen Garcia PA-C) Subjective Pt evaluation today including: conversation w/ patient, conversation w/ family , physical exam, chart review, lab review, review of studies, review of inpatient medication list Patient seen and evaluated. No acute events overnight. Reporting better control of pain of hip now that it has been surgically repaired. Participated in PT/OT and recommending rehab. Concerned she could not tolerate transport back home (approx. 4 hours away) Referral to [facility] which patient would be optimal for D/C when approved. On labs she is severely deficient in Vit D and folate and have started supplementation She verbalizes no other issues at this time. Constitutional: No fever, No chills Respiratory: No cough, No shortness of breath Cardiovascular: No chest pain Abdomen: No pain, No nausea, No vomiting, No diarrhea, No constipation Musculoskeletal: + joint pain (R Hip) Female : No dysuria Neurologic: No numbness/tingling Heme: No abnormal bleeding/bruising Skin: No rash (Kathleen Garcia PA-C) Medications Current Inpatient Medications Medications (Trade) Dose Ordered Sig/Miah Route Start Time Stop Time Status Last Admin Dose Admin Morphine Sulfate (MoRPHine SULFATE INJ) 4 mg Q4H PRN IV 05/02/17 20:00 05/16/17 19:59 05/03/17 07:52 4 MG Hydromorphone HCl (Dilaudid Inj) 1 mg Q4H PRN IV 05/02/17 20:00 05/16/17 19:59 05/02/17 22:50 1 MG Hydralazine HCl (HydrALAZINE INJ) 10 mg Q4H PRN IV. 05/02/17 20:00 06/01/17 19:59 Allopurinol (Zyloprim Tab) 300 mg DAILY PO 05/03/17 09:00 06/02/17 08:59 05/04/17 07:54 300 MG Latanoprost (Xalatan Oph Soln) 1 drops HS OPB 05/03/17 21:00 06/02/17 20:59 05/03/17 20:59 1 DROPS Lactated Ringer's 1,000 ml @ 80 mls/hr [id number] IV 05/03/17 01:45 06/02/17 01:44 05/03/17 23:26 80 MLS/HR Nicotine (Nicoderm Cq 21MG Patch) 1 patch QAM TD 05/03/17 09:00 06/02/17 08:59 05/04/17 07:54 1 PATCH Miscellaneous (Remove Nicoderm Patch) 1 ea HS N/A 05/03/17 21:00 06/02/17 20:59 05/03/17 20:59 1 EA Ondansetron HCl (Zofran Inj) 4 mg Q6H PRN IV 05/03/17 15:15 06/02/17 15:14 Oxycodone HCl (Roxicodone Immediate Rel Tab) 5 mg Q4H PRN PO 05/03/17 15:15 05/17/17 15:14 05/04/17 03:40 5 MG Oxycodone HCl (Roxicodone Immediate Rel Tab) 10 mg Q4H PRN PO 05/03/17 15:15 05/17/17 15:14 05/04/17 10:50 10 MG Aspirin/Aluminum/ Magnesium/Ca Carb (Ascriptin Tab) 325 mg BID PO 05/03/17 21:00 06/02/17 20:59 05/04/17 07:54 325 MG Naloxone HCl (Narcan Inj) 0.4 mg Q1M PRN IV 05/03/17 15:15 06/02/17 15:14 Senna/Docusate Sodium (Senokot S Tab) 2 tab HS PO 05/03/17 21:00 06/02/17 20:59 05/03/17 20:58 2 TAB Magnesium Hydroxide (Milk Of Magnesia Susp) 30 ml DAILY PRN PO 05/03/17 15:15 06/02/17 15:14 Bisacodyl (Dulcolax Supp) 10 mg DAILY PRN [place] 05/03/17 15:15 06/02/17 15:14 Ergocalciferol (Vitamin D Cap) 50,000 interunit Q7D@0900 PO 05/04/17 09:00 06/03/17 08:59 05/04/17 09:11 50,000 INTERUNIT Cholecalciferol (Vitamin D Tab) 4,000 inter.unit QAM PO 05/04/17 09:00 06/03/17 08:59 05/04/17 09:11 4,000 INTER.UNIT (Kathleen Garcia PA-C) Objective Vital Signs Date Time Temp Pulse Resp B/P (MAP) Pulse Ox O2 Delivery O2 Flow Rate FiO2 05/04/17 16:19 36.9 110 18 134/83 (100) 96 Nasal Cannula 2.0 05/04/17 09:02 Nasal Cannula 2.0 94 05/04/17 07:57 37.0 113 18 131/80 (97) 91 Nasal Cannula 2.0 05/04/17 03:35 36.7 91 16 136/76 (96) 99 Nasal Cannula 1.0 05/03/17 23:45 Nasal Cannula 05/03/17 23:03 36.9 101 17 139/69 (92) 98 Nasal Cannula 1.0 05/03/17 20:15 36.8 117 16 145/69 (94) 96 Nasal Cannula 2.0 05/03/17 18:30 36.5 108 16 160/80 (106) 99 Nasal Cannula 2.0 05/03/17 17:32 36.5 98 18 171/94 (119) 99 Nasal Cannula 2.0 (Kathleen Garcia PA-C) Physical Exam General Appearance: no apparent distress, + thin Neck: supple, no JVD, trachea midline Respiratory/Chest: lungs clear, normal breath sounds, no respiratory distress, no accessory muscle use Cardiovascular: regular rate, rhythm, no gallop, no murmur Abdomen: normal bowel sounds, non tender, soft Extremities: no pedal edema, no calf tenderness Neurologic/Psychiatric: alert, oriented x 3 Skin: normal color, warm/dry (Kathleen Garcia PA-C) Laboratory Results Last 24 Hours Test 05/03/17 17:38 05/04/17 05:39 Vitamin B12 Level 237 pg/mL Folate 5.29 ng/mL White Blood Count 6.85 K/uL Red Blood Count 3.02 M/uL Hemoglobin 10.2 g/dL Hematocrit 31.2 % Mean Corpuscular Volume 103.3 fL Mean Corpuscular Hemoglobin 33.8 pg Mean Corpuscular Hemoglobin Concent 32.7 g/dl RDW Standard Deviation 53.2 fL RDW Coefficient of Variation 14.2 % Platelet Count 130 K/uL Mean Platelet Volume 10.3 fL Sodium Level 140 mmol/L Potassium Level 3.7 mmol/L Chloride Level 103 mmol/L Carbon Dioxide Level 29 mmol/L Anion Gap 8.0 mmol/L Blood Urea Nitrogen 4 mg/dl Creatinine 0.54 mg/dl Est Creatinine Clear Calc Drug Dose 62.5 ml/min Estimated GFR () 107.7 Estimated GFR (Non- 93.0 BUN/Creatinine Ratio 7.1 Random Glucose 114 mg/dl Calcium Level 8.8 mg/dl (Kathleen Garcia, PA-C) Assessment and Plan Right hip fracture in a 76 year old female with h/o emphysema and over 100 pack year of smoking R Hip Fracture S/P Trochanteric Nailing on 05/03: - Patient sustained a fall from a 90+ lb dog jumped up on her and fell backwards - Pain medication PRN - PT/OT services - recommending rehab - Orthopedics following- appreciate recommendations Suspect Osteopenia/Osteoporosis with Folate Deficiency and Vitamin D Deficiency: - Recommend outpatient DEXA scan and will continue supplementation - Folic acid supplementation Tobacco Use: - 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 DVT Prophylaxis: SCDs Code Status: FULL RESUSCITATION Disposition: - From [place] and unsure if she will tolerate trip home and referral to [facility] placed - Would be medically suitable to go to rehab when approval received Continued [facility] stay due to: ambulation difficulties Discharge planning: rehab hospital (Kathleen Garcia, PA-C) i personallly examined pt and verified all arizmendi points w Dayanara Garcia PAC feeling ok discussed osteoporosis and D level vitals noted nad breathing unlabored no pallor or icterus osteoporotic hip fx and severe vitamin D deficiency -s/p orthopedic surg to correct fx -aggressively replace D, repeat in ~3 months -start bisphosphonate, get DEXA ~1 month -rehab placement -smoke cessation (Roge Roche D.O.)
[2017-05-04] MEDS: DOCUSATE SODIUM/SENNA 50/8.6MG TAB PO SCH (22:26)
[2017-05-04] MEDS: LATANOPROST 0.005% OP SOLN 2.5 ML BTL OPB SCH (22:27)
[2017-05-04] MEDS ORDERED: NURSING DECISION MEDICATION ORDER SCH (22:45)
[2017-05-05] MEDS: OXYCODONE HCL IR 5 MG TAB (IMMEDIATE RELEASE) PO PRN ×3 (05:40→14:08)
[2017-05-05] MEDS: NICOTINE 21 MG/24 HR TDSY TD SCH (08:03)
[2017-05-05] MEDS: CHOLECALCIFEROL 1000 INTER.UNIT TAB PO SCH (08:04)
[2017-05-05] MEDS: ALLOPURINOL 300 MG TAB PO SCH (08:04)
[2017-05-05] MEDS: ASPIRIN/ALUM/MAGNES/CAL CARB 325 MG TAB PO SCH (08:04)
[2017-05-05 08:07] VITALS: BP 129/72; PULSE 113; TEMP 36.6; O2SAT 90
[2017-05-05] MEDS ORDERED: FoLIC ACID TAB 400 MCG TAB PO SCH (09:00)
[2017-05-05] MEDS ORDERED: CYANOCOBALAMIN 500 MCG TAB (VIT B-12) PO SCH (09:00)
[2017-05-05] MEDS ORDERED: VTMD1000 PO (12:42)
[2017-05-05] MEDS ORDERED: ASPI325T60 PO (12:42)
[2017-05-05] MEDS ORDERED: SENN8.6T7 PO (12:42)
[2017-05-05] MEDS ORDERED: NICO21DI4 TD (12:42)
[2017-05-05] MEDS ORDERED: ERGO500011 PO (12:42)
[2017-05-05] MEDS ORDERED: RXC5 PO (12:42)
[2017-05-05] MEDS ORDERED: FLV1 PO (12:42)
[2017-05-05] MEDS ORDERED: VTMB12 PO (12:42)
--- NOTE | 2017-05-05 12:48 | Orthopedic Progress Note ---
Orthopedic Progress Note Date of Service May 05, 2017. Subjective Post OP Day: 2 Reports: feeling well, Denies: chest pain, SOB, nausea / vomiting, light headedness, calf pain Objective calves soft nontender, N/V intact, capillary refill less than 2 sec., dressing C /D/I, A&O x3, toes mobile Date Time Temp Pulse Resp B/P (MAP) Pulse Ox O2 Delivery O2 Flow Rate FiO2 05/05/17 08:07 36.6 113 18 129/72 (91) 90 Room Air 05/05/17 07:30 Room Air 05/05/17 00:15 Room Air 05/04/17 22:58 37.4 05/04/17 22:55 37.9 115 16 115/71 (86) 92 Room Air 05/04/17 19:20 37.3 113 16 124/75 (91) 92 Room Air 05/04/17 16:19 36.9 110 18 134/83 (100) 96 Nasal Cannula 2.0 05/04/17 15:45 94 Nasal Cannula 2.0 Assessment & Plan Assessment: POD 2 s/p Right TFN Plan: PT/OT - TTWB DC PLANNING- REFERRAL PLACED TO [facility]. ORTHOPEDICALLY STABLE FOR TRANSFER ONCE ACCEPTED. DVT PROPH- [facility]NAG[facility] PAIN MANAGEMENT Inhouse Planning Pain Management: Morphine, Oxy IR DVT Prophylaxis: TEDs, SCDs, ASA Discharge Planning Discharge Planning: uncertain
--- NOTE | 2017-05-05 12:57 | Discharge Instructions ---
Discharge Instructions Date of Service May 05, 2017. Admission Reason for Admission: Fracture Of Right Hip Discharge Discharge Diagnosis / Problem: R Hip Fracture S/P Trochanteric Nailing Discharge Goals Goal(s): Decrease discomfort, Improve function, Increase independence Activity Recommendations Activity Level: Assistance Required Therapies: Physical Therapy, Occupational Therapy Weightbearing Status: Right toe touch . Additional Information Patient informed of condition: Yes Advance Directives: No DNR: No Level of Care: Acute Rehab Communicable Disease: No Prognosis: Stable Instructions / Follow-Up Instructions / Follow-Up Right hip fracture in a 76 year old female with h/o emphysema and over 100 pack year of smoking R Hip Fracture S/P Trochanteric Nailing on 05/03: - Patient sustained a fall from a 90+ lb dog jumped up on her and fell backwards - Oxycodone 1-2 tablets PRN for pain - Does utilize Tramadol PRN at home and can utilize this if it will given adequate coverage for pain - Will continue ASA 325 mg BID x 4 weeks for DVT prophylaxis - Patient currently toe-touch weight WB on R side - Recommend follow-up with orthopedics soon after discharge Suspect Osteopenia/Osteoporosis with Folate Deficiency/Macrocytosis and Vitamin D Deficiency: - Recommend outpatient DEXA scan and will continue supplementation - Folic acid 1 mg supplement and B12 supplementation - Vitamin D supplement with daily dosing and 50,000 units Q7D x 8 weeks - repeat Vitamin D level in 3 months - Recommend DEXA scan in 1 month and to start Bisphosphonate Tobacco Use: - Recommend PCP referral to bioinformatics specialist back home - Nicotine patch Code Status: FULL RESUSCITATION Disposition: - From [place], [place] - Needs PCP follow-up for monitoring of Vit D and DEXA scan Current Hospital Diet Patient's current hospital diet: Regular Diet Discharge Diet Recommended Diet: Regular Diet Procedures Procedures Performed: Closed locked trochanteric nailing, right hip Pending Studies Studies pending at discharge: no Physician Orders On Transfer POLST Discussion: without POLST completion Medical Emergencies . Who to Call and When: Medical Emergencies: If at any time you feel your situation is an emergency, please call 911 immediately. . Non-Emergent Contact Non-Emergency issues call your: Primary Care Provider Call Non-Emergent contact if: you have a fever, your pain is concerning you, you have any medication questions . . "Provider Documentation" section prepared by Kathleen Garcia. . Core Measure Problem Core Measures: None [place] Drug Monitoring Program Search Results: patient reviewed within database, no issues identified
[2017-05-05 14:14] VITALS: BP 129/72; PULSE 113; TEMP 36.6; O2SAT 90
--- NOTE | 2017-05-05 15:00 | Discharge Summary ---
Discharge Summary Date of Service May 05, 2017. (Kathleen Garcia PA-C) Discharge Summary Admission Date: May 02, 2017 at 18:03 Discharge Date: May 05, 2017 Discharge Disposition: Rehab Principal Diagnosis: R Hip Fracture S/P Trochanteric Nailing Problems/Secondary Diagnoses: 1. Suspected Emphysema 2. Tobacco Use 3. Macrocytic Anemia 4. Folate Deficiency 5. Osteopenia/Osteoporosis 6. Vitamin D Deficiency Procedures: R PELVIS/UNILATERAL HIP 2-3VIEWS FINDINGS: Bones are moderately demineralized. 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 Degenerative changes are also seen within the SI joints and bilateral lumbar spine. There is an acute minimally comminuted intertrochanteric fracture of the right femur with apex lateral angulation of approximately 25 degrees. Fracture lines are seen extending inferior to the greater trochanter laterally. No significant displacement or foreshortening identified. Moderate associated soft tissue swelling. IMPRESSION: Acute minimally comminuted intertrochanteric fracture of the right femur with mild apex lateral angle angulation and associated soft tissue swelling. Consultations: 1. Orthopedic Surgery 2. PT/OT (Kathleen Garcia PA-C) Medication Reconciliation New Medications: Aspirin Buffered (Genaro Carb-Mag (Tri-Buffered Aspirin) 1 Tab Tab 325 MG PO BID for 30 Days, TAB Cholecalciferol (Vitamin D3) 1,000 Inter.unit Tab 4000 INTER.UNIT PO QAM for 30 Days, TAB Cyanocobalamin (Vitamin B-12) 500 Mcg Tab 1000 MCG PO QAM for 30 Days, #60 TAB Ergocalciferol (Vitamin D 40921 Unit) 50,000 Unit Cap 96823 INTERUNIT PO Q7D@0900, #4 CAP Folic Acid (Folic Acid) 1 Mg Tab 1 MG PO QAM for 30 Days, #30 TAB Nicotine (Nicoderm Cq) 21 Mg/24 Hr Dis 1 PATCH TD QAM for 7 Days Oxycodone HCl (Oxycodone HCl) 5 Mg Tab 5-10 MG PO Q4H PRN for Moderate Pain (pain scale 4-6) for 3 Days, #20 TAB Take 1 tab for pain level 1-5 and 2 tablets for pain level 6-10 Sennosides-Docusate Sodium (Senokot S) 1 Tab Tab 2 TAB PO HS for 7 Days, TAB Continued Medications: Allopurinol (Zyloprim) 300 Mg Tab 300 MG PO DAILY, TAB Latanoprost (Xalatan 0.005% Oph Esther) 0.005 % Esther 1 DROPS OPB HS, #2.5 ML 3 Refills Loperamide Hcl (Imodium) 2 Mg Cap 2 MG PO PRN, CAP Tramadol (Ultram) 50 Mg Tab 50 MG PO Q4H PRN for Pain, TAB [Nasonex] () 1 SPRAY WARD DAILY PRN for Nasal Congestion [Timolol] () 1 DROP OPB QAM Discharge Exam Review of Systems: Constitutional: No fever, No chills Respiratory: No cough, No shortness of breath Cardiovascular: No chest pain Abdomen: No pain, No nausea, No vomiting, No diarrhea Musculoskeletal: + joint pain (R Hip), No swelling, No calf pain Genitourinary - Female: No dysuria Neurologic: No numbness/tingling Hematologic / Lymphatic: No abnormal bleeding/bruising, No clotting problems Integumentary: No rash Physical Exam: General Appearance: no apparent distress, + thin Neck: supple, no JVD, trachea midline Respiratory/Chest: lungs clear, normal breath sounds, no respiratory distress, no accessory muscle use Cardiovascular: regular rate, rhythm, no gallop, no murmur Abdomen / GI: normal bowel sounds, non tender, soft Extremities: no calf tenderness, no pedal edema, + pertinent finding ( dressing C/D/I to R hip) Neurologic/Psychiatric: alert, oriented x 3 Skin: normal color, warm/dry (Kathleen Garcia, RUPERTO) Hospital Course ADMISSION: Her was taking their dogs out from the trailer as they were here visiting for [place] [employer] football game. One of the dogs ran loose and patient grabbed the leash. Her 96 lb dog got excited and jumped on her while she was standing pushing her backwards on hardwood floor in the trailer on the right side. HOSPITAL COURSE: Ms. Parra was admitted for R Hip Fx S/P Trochanteric Nailing on 05/03. Imaging reveals brittle appearing bones and Vit D levels were obtained. She is significantly deficient and will replete. Will continue Vitamin D 50,000 units Q7D x 8 weeks and also daily supplementation with recheck in 3 months. She should have a DEXA scan and consideration to start Fosamax by her PCP. She also has macrocytic anemia and will replace B12 and Folate. She has been counseled on smoking cessation. It appears she may not consistently follow with her PCP and this should be encouraged. Imaging also reveals emphysema however this has not been formally diagnosed. She is reporting good pain control at this time. She is approx. 4 hours away but will participate in rehab at [facility] and then return home. At this time she is toe- touch WB of R leg and will continue ASA BID for DVT Prophylaxis. Total Time Spent: Greater than 30 minutes This includes examination of the patient, discharge planning, medication reconciliation, and communication with other providers. (Kathleen Garcia, PA-C) i personally examined pt and verified all arizmendi points w Dayanara Garcia PAC feeling OK - still some hip pain but ready for rehab vitals noted nad breathing unlabored no pallor or icterus osteoporotic hip fracture - surgically corrected by ortho osteoporosis w severe vitamin D deficiency -replace D aggressively and follow levels closely (likely Q12wks for the next year to ensure adequate replacement and then stability) -DEXA after discharge from rehab, bisphosphonate to be started in about a month once fracture/repair has had adequate healing time macrocytic anemia -anemia from acute blood loss related to fracture -macrocytosis - low folate, fairly low B12 -replace both orally, repeat levels in ~3 months --> if B12 not coming up, then would need to replace IM (Roge Roche, D.Vanita.) Discharge Instructions Please refer to the electronic Patient Visit Report (Discharge Instructions) for additional information. (Kathleen Garcia, PA-C) Additional Copies To [facility]
[2017-05-05] MEDS ORDERED: TRAM-10 PO (15:05)
== END 2017-05-05 16:20 | DRG 481 ==
LOC: C.EDC 13:59 → C.MSW 18:03 → EDBEDREQSVC 18:08 → ENRESERV 18:17
PROVIDERS: ADMIT Internal Medicine Sports Medicine; ATTEND Family Medicine
PROC: 0T9B70Z Drainage of Bladder with Drainage Device, Via Natural or Artificial Opening (ICD-10-PCS; 2017-05-02)
PROC: 0QS6XZZ Reposition Right Upper Femur, External Approach (ICD-10-PCS; principal; 2017-05-03 15:15)
PROC: 0QH606Z Insertion of Intramedullary Internal Fixation Device into Right Upper Femur, Open Approach (ICD-10-PCS; principal; 2017-05-03 15:15)
DX: M80.851A Other osteoporosis with current pathological fracture, right femur, initial encounter for fracture (principal); Z68.1 Body mass index [BMI] 19.9 or less, adult; D62 Acute posthemorrhagic anemia; W54.1XXA Struck by dog, initial encounter; R63.6 Underweight; D53.9 Nutritional anemia, unspecified; F17.200 Nicotine dependence, unspecified, uncomplicated; M10.9 Gout, unspecified; H40.9 Unspecified glaucoma; Y92.838 Other recreation area as the place of occurrence of the external cause; Y99.8 Other external cause status; Z79.899 Other long term (current) drug therapy